=== PATIENT | male | born 1955 | race American Indian/Alaskan Native ===

== ENCOUNTER 2017-05-26 13:23 | Outpatient (CLI) | payer BC ==
--- NOTE | 2017-05-26 13:48 | XRay Report ---
Chest 2 views. History: Positive PPD. Findings: The heart, lungs, and pulmonary vessels are within normal limits.
== END 2017-05-26 13:24 | disposition home or self-care (01) ==
LOC: XRAY 13:23 → SPVIMAG 13:23 → XRAY 13:24
PROVIDERS: ATTEND Internal Medicine
DX: Z11.1 Encounter for screening for respiratory tuberculosis (principal); R76.11 Nonspecific reaction to tuberculin skin test without active tuberculosis
CPT/HCPCS: 71020

== ENCOUNTER 2017-07-23 11:00 | Outpatient (CLI) | payer BC ==
[2017-07-23 11:42] LABS: Alanine Aminotransferase 30 units/L (7-56); Albumin 4.1 g/dL (3.9-5); Albumin/Globulin Ratio 1.4 %; Alkaline Phosphatase 43 units/L (35-129); Anion Gap 19 mmol/L; BUN/Creatinine Ratio 12; Blood Urea Nitrogen 12 mg/dL (9-20); Calcium 8.9 mg/dL (8.4-10.2); Carbon Dioxide 23 mmol/L (22-30); Chloride 104.5 mmol/L (98-107); Cholesterol 178 mg/dL (50-199); Glucose 99 mg/dL (75-100); HDL Cholesterol 50 mg/dL (40-59); LDL Cholesterol,Direct 111 mg/dL (50-130); Potassium 4.1 mmol/L (3.6-5.0); Sodium 142 mmol/L (137-145); Total Protein 7.1 g/dL (6.3-8.2); Triglycerides 89 mg/dL (2-149)
== END 2017-07-23 11:01 | disposition home or self-care (01) ==
LOC: LAB 11:00
PROVIDERS: ATTEND Internal Medicine
DX: I10 Essential (primary) hypertension (principal); E78.2 Mixed hyperlipidemia
CPT/HCPCS: 36415; 80053; 80061

== ENCOUNTER 2019-04-12 11:16 | Outpatient (CLI) | payer BC ==
[2019-04-12 11:55] LABS: Alanine Aminotransferase 42 units/L (7-56); Albumin 4.2 g/dL (3.9-5); BUN/Creatinine Ratio 9; Blood Urea Nitrogen 9 mg/dL (9-20); Calcium 9.2 mg/dL (8.4-10.2); Hemolysis Index 9
== END 2019-04-12 11:17 | disposition home or self-care (01) ==
LOC: LAB 11:16
PROVIDERS: ATTEND Internal Medicine
DX: I10 Essential (primary) hypertension (principal)
CPT/HCPCS: 36415; 80053

== ENCOUNTER 2019-05-08 12:03 | Outpatient (CLI) | payer BC ==
--- NOTE | 2019-05-08 13:54 | XRay Report ---
CHEST 2 VIEWS INDICATION: POSITIVE PPD. COMPARISON: 05/26/2017 FINDINGS: Support devices: None. Heart: Normal. Pulmonary vasculature: Normal. Lungs/pleura: Lungs are normally expanded and clear. No pleural effusion. No pneumothorax. Additional findings: None. IMPRESSION: 1. Normal chest. Signer Name: Eddie Marks MD Signed: 05/08/2019 1:49 PM Workstation Name: [id number]
== END 2019-05-08 12:04 | disposition home or self-care (01) ==
LOC: SPVIMAG 12:03
PROVIDERS: ATTEND Internal Medicine
DX: Z92.89 Personal history of other medical treatment (principal)
CPT/HCPCS: 71046